=== PATIENT | male | born 1985 | race Caucasian/White ===

== ENCOUNTER 2020-10-17 13:05 | Emergency (ER) | payer OTHER ==
[~2020-10-17 13:05] MED LIST: BACTRIM DS TAB1 EACH PO; LEVOTHYROXINE25 MCG PO; LISINOPRIL10 MG PO; PROTONIX40 MG PO
== END 2020-10-17 15:19 | disposition home or self-care (01) ==
LOC: ER1 13:05
DX: F41.9 Anxiety disorder, unspecified (principal); I10 Essential (primary) hypertension; F32.9 Major depressive disorder, single episode, unspecified; F17.210 Nicotine dependence, cigarettes, uncomplicated; Z91.013 Allergy to seafood; Z79.899 Other long term (current) drug therapy
CPT/HCPCS: 99283

== ENCOUNTER 2021-09-18 09:48 | Emergency (ER) | payer OTHER ==
[2021-09-18 11:05] LABS: RED BLOOD COUNT 4.99 M/UL (4.20-5.50); WHITE BLOOD COUNT 9.6 K/UL (4.5-11.0)
[2021-09-18 11:22] LABS: BUN/CREATININE RATIO 14 (0-10)
== END 2021-09-18 17:11 | disposition short-term general hospital (02) ==
LOC: ER1 09:48
PROVIDERS: Emergency Medicine
DX: K56.609 Unspecified intestinal obstruction, unspecified as to partial versus complete obstruction (principal); K85.90 Acute pancreatitis without necrosis or infection, unspecified; I10 Essential (primary) hypertension
CPT/HCPCS: 51701; 80053; 83690; 85025; 96374; 96375; 96376; 99285; J1885; J2060; J2405; J7030; Q9967

== ENCOUNTER 2021-09-27 11:42 | Observation (INO) | payer OTHER ==
[~2021-09-27] VITALS: Ht 175.3 cm; Wt 63.5 kg
[2021-09-27 13:05] LABS: HEMOGLOBIN 12.6 gm/dl (14.0-17.5); RED BLOOD COUNT 4.25 M/UL (4.20-5.50); WHITE BLOOD COUNT 11.5 K/UL (4.5-11.0)
[2021-09-27 13:32] LABS: BUN/CREATININE RATIO 14 (0-10)
[2021-09-27] MEDS ORDERED: ONDANSETRON HCL4 MG PO (18:57)
[2021-09-27] MEDS ORDERED: BUPRENORPHIN-N1 EACH SL (18:58)
[2021-09-27] MEDS ORDERED: BUPRENORPHIN-N1 EACH PO (18:58)
[2021-09-27] MEDS ORDERED: PROPRANOLOL HCL10 MG PO (18:58)
[2021-09-27] MEDS ORDERED: METHOCARBAMOL500 MG PO (18:59)
[2021-09-27] MEDS ORDERED: QUETIAPINE FUMA50 MG PO (18:59)
[2021-09-27] MEDS ORDERED: VENLAFAXINE H37.5 MG PO (18:59)
[2021-09-27] MEDS ORDERED: GUANFACINE HCL1 MG PO (18:59)
[2021-09-28 07:08] LABS: HEMOGLOBIN 10.8 gm/dl (14.0-17.5)
[2021-09-28 07:09] LABS: BUN/CREATININE RATIO 11 (0-10)
[2021-09-28 07:13] LABS: RED BLOOD COUNT 3.76 M/UL (4.20-5.50); WHITE BLOOD COUNT 6.6 K/UL (4.5-11.0)
[2021-09-28] MEDS ORDERED: ENULOSE10 GM/15 M PO (11:18)
[2021-09-28] MEDS ORDERED: COLACE100 MG PO (11:18)
== END 2021-09-28 16:12 | disposition home or self-care (01) ==
LOC: ER1 11:42 → CDU 18:13 → MED SURG 4 21:30
PROVIDERS: Physician Assistant; ADMIT Internal Medicine
DX: R10.9 Unspecified abdominal pain (principal); K59.00 Constipation, unspecified; K21.9 Gastro-esophageal reflux disease without esophagitis; D72.829 Elevated white blood cell count, unspecified; I10 Essential (primary) hypertension; E03.9 Hypothyroidism, unspecified; D64.9 Anemia, unspecified; F32.A Depression, unspecified; Z20.822 Contact with and (suspected) exposure to COVID-19; Z96.89 Presence of other specified functional implants; Z91.013 Allergy to seafood; Z79.899 Other long term (current) drug therapy
CPT/HCPCS: 80053; 81001; 82150; 83690; 85025; 87040; 96374; 96375; 99285; G0378; J1335; J2270; J2405; J3370; J7030; J7070; Q9967; U0002